=== PATIENT | male | born 2000 | race Caucasian/White ===

== ENCOUNTER 2020-10-02 01:04 | Emergency (ER) | payer BC ==
[~2020-10-02] VITALS: Ht 177.8 cm; Wt 77.6 kg
[2020-10-02 01:15] VITALS: Ht 177.8 cm; Wt 77.6 kg
[2020-10-02 03:11] VITALS: BP 121/82
== END 2020-10-02 03:11 | disposition home or self-care (01) ==
LOC: ED 01:04
DX: S63.601A Unspecified sprain of right thumb, initial encounter (principal); X58.XXXA Exposure to other specified factors, initial encounter; Y93.89 Activity, other specified; Y92.89 Other specified places as the place of occurrence of the external cause; Y99.8 Other external cause status